=== PATIENT | male | born 2005 | race Caucasian/White ===

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

== ENCOUNTER 2025-08-21 17:19 | Emergency (ER) | payer BC ==
[2025-08-21 20:05] VITALS: BP 151/91; PULSE 93
== END 2025-08-21 20:29 | disposition home or self-care (01) ==
LOC: MW.ED 17:19
DX: L02.01 Cutaneous abscess of face (principal); Z79.899 Other long term (current) drug therapy
CPT/HCPCS: 99283; A9270; J2003